=== PATIENT | female | born 1985 | race Caucasian/White ===

== ENCOUNTER 2023-09-17 08:54 | Outpatient (CLI) | payer BC ==
[2023-09-17 10:18] LABS: Hematocrit 39.8 % (34.9-44.5)
[2023-09-17 12:09] LABS: BHCG - Serum Negative (NEGATIVE); Pregs Control Background? CLEAR/WHITE (CLR/WHITE); Pregs Control Bar Appear? YES (CONTROL BAR)
== END 2023-09-17 08:55 | disposition home or self-care (01) ==
LOC: LABBT 08:54
PROVIDERS: ATTEND Otolaryngology Plastic Surgery within the Head & Neck
DX: Z01.812 Encounter for preprocedural laboratory examination (principal); S02.2XXA Fracture of nasal bones, initial encounter for closed fracture; J34.2 Deviated nasal septum; J34.3 Hypertrophy of nasal turbinates
CPT/HCPCS: 84703; 85014

== ENCOUNTER 2023-09-18 07:13 | Day surgery (SDC) | payer OTHER ==
[2023-09-18] MEDS ORDERED: Oxymetazoline HCl 0.05% (30 ML BOT) ONE ×2 (08:26→09:29)
[2023-09-18] MEDS ORDERED: EPINEPHrine 1 MG/ML VIAL ONE (09:29)
[2023-09-18] MEDS ORDERED: Lidocaine 1% (PF) 30 ML VIAL ONE (09:29)
[2023-09-18] MEDS ORDERED: Bacitracin Zinc Ointment 30 gm TUBE ONE (09:29)
[2023-09-18] MEDS ORDERED: Dexamethasone 20 MG/5 ML VIAL ONE ×2 (09:35→09:42)
[2023-09-18] MEDS ORDERED: Ondansetron PF 4 MG/2 ML Vial ONE ×2 (09:35→09:42)
[2023-09-18] MEDS ORDERED: Midazolam HCl 2 mg/2 ml Vial ONE (09:35)
[2023-09-18] MEDS ORDERED: PROPOFOL 40 ML ONE (09:35)
[2023-09-18] MEDS ORDERED: fentaNYL PF 100 MCG/2 ML SYRINGE ONE (09:35)
[2023-09-18] MEDS ORDERED: Lidocaine 1% PF 5 ML VIAL ONE ×2 (09:35→09:42)
[2023-09-18] MEDS ORDERED: PROPOFOL 200 MG/20 ML VIAL ONE (09:42)
[2023-09-18] MEDS ORDERED: fentaNYL 50 mcg/mL 1 mL Vial ONE (10:23)
[2023-09-18] MEDS ORDERED: Promethazine HCl 25 MG/ML VIAL ONE (11:21)
[2023-09-18] MEDS ORDERED: Hydrocodone-Acetamin 15 ML UDCUP ONE (11:22)
== END 2023-09-18 13:35 | disposition home or self-care (01) ==
LOC: SDC 07:13
PROVIDERS: ATTEND Otolaryngology Plastic Surgery within the Head & Neck
PROC: 0NSBXZZ Reposition Nasal Bone, External Approach (ICD-10-PCS; principal; 2023-09-18)
PROC: 09CM8ZZ Extirpation of Matter from Nasal Septum, Via Natural or Artificial Opening Endoscopic (ICD-10-PCS; principal; 2023-09-18)
DX: S02.2XXA Fracture of nasal bones, initial encounter for closed fracture (principal); J34.2 Deviated nasal septum; J34.3 Hypertrophy of nasal turbinates; I10 Essential (primary) hypertension; Z79.899 Other long term (current) drug therapy; W18.2XXA Fall in (into) shower or empty bathtub, initial encounter
CPT/HCPCS: J0171; J1100; J2001; J2250; J2405; J2550; J2704; J3010